=== PATIENT | male | born 1995 | race Caucasian/White ===

== ENCOUNTER 2017-02-20 20:55 | Emergency (ER) | payer BC ==
[~2017-02-20] VITALS: Ht 172.7 cm; Wt 81.3 kg
[2017-02-20 21:00] VITALS: TEMP 36.9; Ht 172.7 cm; Wt 81.3 kg
[2017-02-20] MEDS ORDERED: AMPH30CA3 PO (21:23)
[2017-02-20 22:31] LABS: URINE APPEARANCE CLEAR (CLEAR); URINE BILIRUBIN NEG (NEG); URINE COLOR YELLOW; URINE NITRITE NEG (NEG); UROBILINOGEN NEG (NEG); ZZUR CULT IF INDIC CLEAN CATCH NO
[2017-02-20 22:32] LABS: MANUAL MICROSCOPIC REQUIRED? NO; REVIEW REQ? NO
--- NOTE | 2017-02-20 22:54 | DIAGNOSTIC IMAGING REPORT ---
ULTRASOUND TESTES AND SCROTUM CLINICAL HISTORY: Left testicular pain. Nausea. COMPARISON STUDY: No priors. TECHNIQUE: Real-time, grayscale, and color Doppler sonography of the testes and scrotum is performed. Images are reviewed in the transverse and longitudinal planes. FINDINGS: The testes are normal in size and homogeneous in echotexture. The right testis measures 5.8 x 3.1 x 3.2 cm and the left testis measures 5.5 x 2.4 x 3.3 cm. No intratesticular mass is seen. Testicular blood flow is normal and symmetric. Normal Doppler waveforms are identified in both testes. The epididymal heads are normal in appearance. The right epididymal head measures 1.4 cm in length and the left epididymal head measures 1.0 cm in length. There is a small left-sided varicocele which measures up to 3 mm. No hydrocele is seen. IMPRESSION: 1. No acute sonographic abnormality is identified involving the testes or scrotum. 2. Small left-sided varicocele. Electronically signed by: Cirilo Buck M.D. 02/20/2017 10:53 PM Dictated Date/Time: 02/20/2017 10:51 PM
--- NOTE | 2017-02-20 23:56 | EMERGENCY ROOM VISIT NOTE ---
History First contact with patient: 22:07 Chief Complaint: TESTICULAR PAIN Stated Complaint: L TESTICAL HURTS, NAUSEA Nursing Triage Summary: reports while studying " I went to scratch my testicles and noted that 1 is larger than the other and now they both hurt also", denies urinary sx History of Present Illness The patient is a 21 year old male who presents to the Emergency Room with complaints of left testicular pain. The patient states that while studying, he scratched his scrotum and noticed that his left testicle was bigger than the right. He reports that he has had pain in the left testicle since then. He states the pain comes in waves and rates the discomfort a 6/10 at its worst. He reports associated nausea. He denies any associated abdominal pain. He denies any urinary symptoms. He denies any history of similar symptoms or history of testicular issues. He is sexually active with one partner and uses protection. He denies any chance of STI. He denies any recent testicular trauma. Review of Systems A complete 10 point review of systems was reviewed with the patient with pertinent positives and negatives as per history of present illness. All else were negative. Social History Smoking Status: Never Smoker Current/Historical Medications Scheduled PRN Amphetamine-Dextroamphetamine 30MG (Adderall Xr 30MG), 30 MG PO DAILY PRN for STUDYING Allergies Coded Allergies: Penicillins (Unverified Allergy, Unknown, RASH, 02/20/17) Physical Exam Vital Signs Date Time Temp Pulse Resp B/P Pulse Ox O2 Delivery O2 Flow Rate FiO2 02/21/17 00:05 71 18 153/83 98 02/20/17 22:48 61 18 133/85 98 Room Air 02/20/17 21:00 36.9 82 18 163/103 96 Room Air Physical Exam VITALS: Vitals are noted on the nurse's note and reviewed by myself. Vital signs stable. GENERAL: This is a 21-year-old male, in no acute distress, nondiaphoretic, well- developed well-nourished. HEART: Regular rate and rhythm without murmurs gallops or rubs. LUNGS: Clear to auscultation bilaterally without wheezes, rales or rhonchi. ABDOMEN: Positive bowel sounds x 4. Soft, nontender to palpation. : No tenderness to palpation of the left testicle. No abnormalities palpated. The testicles are symmetric in size. No discharge from the urethra. NEURO: Patient was alert and oriented to person place and time. Medical Decision & Procedures ER Provider Diagnostic Interpretation: ULTRASOUND TESTES AND SCROTUM FINDINGS: The testes are normal in size and homogeneous in echotexture. The right testis measures 5.8 x 3.1 x 3.2 cm and the left testis measures 5.5 x 2.4 x 3.3 cm. No intratesticular mass is seen. Testicular blood flow is normal and symmetric. Normal Doppler waveforms are identified in both testes. The epididymal heads are normal in appearance. The right epididymal head measures 1.4 cm in length and the left epididymal head measures 1.0 cm in length. There is a small left-sided varicocele which measures up to 3 mm. No hydrocele is seen. IMPRESSION: 1. No acute sonographic abnormality is identified involving the testes or scrotum. 2. Small left-sided varicocele. Laboratory Results Test 02/20/17 22:20 Urine Color YELLOW Urine Appearance CLEAR (CLEAR) Urine pH 7.0 (4.5-7.5) Urine Specific [place] 1.010 (1.000-1.030) Urine Protein NEG (NEG) Urine Glucose (UA) NEG (NEG) Urine Ketones NEG (NEG) Urine Occult Blood NEG (NEG) Urine Nitrite NEG (NEG) Urine Bilirubin NEG (NEG) Urine Urobilinogen NEG (NEG) Urine Leukocyte Esterase NEG (NEG) Medical Decision Differential diagnosis includes testicular torsion, epididymitis, STI, urinary tract infection, kidney stone, among others. The patient was evaluated as above. Testicular ultrasound was performed and showed no acute abnormalities. There was a left-sided varicocele and the patient was informed of this. Urinalysis was completely negative. Exam was unremarkable. The patient has no back pain or abdominal pain to suggest a kidney stone. I am not highly suspicious of torsion-detorsion. The patient was referred to [facility] or his own primary care provider for further evaluation of his symptoms. He should return here for any worsening or new/concerning symptoms. He verbalized understanding of my assessment and treatment plan and was discharged home in good condition. Impression Primary Impression: Left testicular pain Additional Impression: Left varicocele Departure Information Dispostion Home / Self-Care Condition GOOD Referrals No Doctor, Assigned (PCP) Patient Instructions My [facility] Additional Instructions For pain control, you can use the following [id number] medicines (if >12 yo): - Regular strength (325mg/tab) Tylenol (acetaminophen) 2 tabs every 4-6 hours as needed. Do not exceed 12 tablets in a 24 hour period. Avoid taking more than 4 grams (4000 mg) of Tylenol per day. This includes any other sources of acetaminophen you may take on a regular basis. - Regular strength (200 mg/tab) Advil (ibuprofen) 1-2 tabs every 4-6 hours as needed. Do not exceed a dose of 3200 mg per day. Follow-up with [facility] within 48 hours. Return to the emergency department with worsening pain, constant pain, or any other new/concerning symptoms. Problem Qualifiers
[2017-02-21 00:05] VITALS: BP 153/83; PULSE 71; O2SAT 98
== END 2017-02-21 00:05 | disposition home or self-care (01) ==
LOC: C.EDB 20:59 → C.EDC 02-21 00:05
DX: N50.812 Left testicular pain (principal); I86.1 Scrotal varices; Z79.899 Other long term (current) drug therapy; Z88.0 Allergy status to penicillin